=== PATIENT | female | born 1990 | race Caucasian/White ===

== ENCOUNTER 2019-03-20 20:58 | Emergency (ER) | payer BC, SELFPAY ==
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
[2019-03-21 01:24] VITALS: TEMP 98.4
[2019-03-21 01:27] VITALS: BP 129/89; O2SAT 99
--- NOTE | 2019-03-21 09:37 | RAD REPORT ---
EXAM DESCRIPTION: RAD - Knee Left 3 View - 03/20/2019 10:31 pm CLINICAL HISTORY: PAIN Trauma, pain COMPARISON: No comparisons FINDINGS: No fracture or dislocation seen.
--- NOTE | 2019-03-21 09:38 | RAD REPORT ---
EXAM DESCRIPTION: RAD - Wrist Left 3 View - 03/20/2019 10:31 pm CLINICAL HISTORY: PAIN Pain COMPARISON: No comparisons FINDINGS: Thin lucency is seen in the region of the radial styloid on the oblique view suspicious fo r nondisplaced fracture. Advise correlation with clinical point tenderness in this region. Elsewher e no fracture is identified.
== END 2019-03-20 23:09 | disposition home or self-care (01) ==
LOC: ER 20:58
DX: S60.212A Contusion of left wrist, initial encounter (principal); S80.02XA Contusion of left knee, initial encounter; V43.52XA Car driver injured in collision with other type car in traffic accident, initial encounter; Y93.89 Activity, other specified; Y92.410 Unspecified street and highway as the place of occurrence of the external cause; F41.9 Anxiety disorder, unspecified; Z72.0 Tobacco use; Z88.1 Allergy status to other antibiotic agents; Z88.3 Allergy status to other anti-infective agents
CPT/HCPCS: 99284

== ENCOUNTER 2021-06-18 23:40 | Emergency (ER) | payer OTHER ==
--- OUTSIDE RECORDS SUMMARY | 2021-06-19 01:18 | XMS REPORT | Continuity of Care Document ---
:1990 Author Organization [facility] t Address [address] [place] [address] [place] [id number] Care Team Providers Name Role Phone [email or web address]_McCloud_C Attending Clinician Unavailable GC_[facility]_McCloud Attending Clinician Unavailable Manuel Attending Clinician [phone] [email or web address]_McCloud_C Admitting Clinician Unavailable GC_[facility]_McCloud Admitting Clinician Unavailable Payers Payer Name Policy Type Policy Number Effective Date Expiration Date [facility] [id number] Problems This patient has no known problems. Allergies, Adverse Reactions, Alerts This patient has no known allergies or adverse reactions. Medications This patient has no known medications. Procedures This patient has no known procedures. Encounters Start End Encounter Admission Attending Care Care Encounter Source Date/Time Date/Time Type Type Clinicians Facility Department ID 2021-05-30 2021-05-30 Outpatient [facility]_ PRIV PRIV [id number] [facility] 03:46:00 03:46:00 McCloud_C [id number] [facility] 2021-05-25 2021-05-25 Outpatient GC_[facility]_ PRIV PRIV [id number] [facility] 11:32:00 11:32:00 McCloud_C [id number] [facility] 2021-05-22 2021-05-22 Outpatient GC_[facility]_ PRIV PRIV [id number] [facility] 11:40:00 11:40:00 McCloud_C [id number] [facility] 2021-05-21 2021-05-21 Outpatient GC_[facility] PRIV PRIV [id number] [facility] 04:28:00 04:28:00 _McCloud [id number] [facility] 2021-05-18 2021-05-18 Outpatient GC_[facility] PRIV PRIV [id number] [facility] 09:58:00 09:58:00 _McCloud [id number] [facility] 2021-05-08 2021-05-08 Outpatient GC_[facility]_ PRIV PRIV [id number] [facility] 03:16:00 03:16:00 McChugoud_C [id number] [facility]i no[facility] 2021-05-07 2021-05-07 Outpatient GC_[facility] PRIV PRIV [id number] [facility] 11:23:00 11:23:00 _McCloud [id number] Medic al 2021-05-07 2021-05-07 Outpatient Manuel, PRIV PRIV [id number] 00:00:00 00:00:00 Alec [id number] 2021-05-02 2021-05-02 Outpatient PRIV PRIV [id number] [facility] 05:27:00 05:27:00 [id number] Medica l Results This patient has no known results.
[2021-06-19 01:26] LABS: Absolute Lymphocytes (CBC) 1.4 K/uL (0.7-4.9); Hematocrit 42.1 % (36.0-45.0); Lymphocytes % 23.3 % (15.3-44.8); MPV 8.1 fL (7.6-11.3); RBC Red Blood Cell Count 5.27 M/uL (3.86-4.86)
[2021-06-19 01:40] LABS: ALT/SGPT 33 U/L (12-78); AST/SGOT 26 U/L (15-37); Albumin 4.2 g/dL (3.4-5.0); Alkaline Phosphatase 47 U/L (45-117); BUN Blood Urea Nitrogen 5 mg/dL (7-18); Bicarbonate 23 mmol/L (21-32); Bilirubin Total 0.5 mg/dL (0.2-1.0); Glucose Level 75 mg/dL (74-106); Lipase 112 U/L (73-393); Potassium 3.3 mmol/L (3.5-5.1); Protein, Total 7.9 g/dL (6.4-8.2); Sodium Level 136 mmol/L (136-145)
[2021-06-19] MEDS ORDERED: FAMOTIDINE 20 MG/2 ML VIAL IV ONE (01:48)
[2021-06-19] MEDS ORDERED: NA CHLORIDE 0.9% 1,000 ML ONE ×2 (01:48→03:03)
--- NOTE | 2021-06-19 04:01 | ER ---
Nurse's Notes [facility] Name: Marianna Membreno Age: 30 yrs Sex: Female : 1990 Arrival Date: 06/18/2021 Time: 23:44 Bed 12 Private MD: Diagnosis: Abdominal tenderness;Vomiting;Calculus of gallbladder without cholecystitis without obstruction;Other cholelithiasis without obstruction;Hypokalemia Presentation: 06/19 00:45 Chief complaint: Patient states: Abdominal pain x 4-5 days with vomiting, diarrhea lp1 began today; Seen at clinic today and prescribed Nexium and order to give stool sample. 00:45 Coronavirus screen: At this time, the client does not indicate any symptoms associated lp1 with coronavirus-19. Ebola Screen: No symptoms or risks identified at this time. Initial Sepsis Screen: Does the patient meet any 2 criteria? No. Patient's initial sepsis screen is negative. Does the patient have a suspected source of infection? No. Patient's initial sepsis screen is negative. Risk Assessment: Do you want to hurt yourself or someone else? Patient reports no desire to harm self or others. Onset of symptoms was June 19, 2021. 00:45 Method Of Arrival: Ambulatory lp1 00:47 Acuity: LINDA 3 lp1 PHOTOENGRAVER: 01:04 LMP N/A - Irregular menses lp1 Historical: - Allergies: 01:03 Augmentin; lp1 01:03 Erythromycin; lp1 - Home Meds: 01:03 Singulair Oral [Active]; Provera oral [Active]; Buspirone Oral [Active]; lp1 - PMHx: 01:03 Anxiety; lp1 - PSHx: 01:03 tubal ligation; lp1 - Immunization history:: Adult Immunizations up to date. - Social history:: Smoking status: Reported history of juuling and/or vaping. - Family history:: not pertinent. Screenin:04 Abuse screen: Denies threats or abuse. Denies injuries from another. Nutritional lp1 screening: No deficits noted. Tuberculosis screening: No symptoms or risk factors identified. Fall Risk None identified. Assessment: 01:15 General: Appears in no apparent distress. Behavior is appropriate for age. Pain: lp1 Complains of pain in epigastric area Pain currently is 7 out of 10 on a pain scale. Neuro: Level of Consciousness is awake, alert, obeys commands. Cardiovascular: Patient's skin is warm and dry. Respiratory: Respiratory effort is even, unlabored. GI: Abdomen is non-distended, Bowel sounds present X 4 quads. Abdomen is tender to palpation in epigastric area. : No signs and/or symptoms were reported regarding the genitourinary system. EENT: No signs and/or symptoms were reported regarding the EENT system. Derm: Skin is pink, warm \T\ dry. Musculoskeletal: No deficits noted. 04:12 Reassessment: Patient and/or family updated on plan of care and expected duration. Pain sm5 level reassessed. Patient is alert, oriented x 3, equal unlabored respirations, skin warm/dry/pink. Vital Signs: 00:45 BP 119 / 97; Pulse 109; Resp 16; Temp 98.6(O); Pulse Ox 100% on R/A; Weight 73.94 kg lp1 (R); Height 5 ft. 6 in. (167.64 cm); Pain 7/10; 04:11 BP 122 / 85; Pulse 88; Resp 16; Pulse Ox 100% on R/A; sm5 00:45 Body Mass Index 26.31 (73.94 kg, 167.64 cm) lp1 ED Course: 06/18 23:44 Patient arrived in ED. es 03/ 00:33 León Malin MD is Attending Physician. kate 00:47 Triage completed. lp1 01:04 Arm band placed on. lp1 01:04 Patient has correct armband on for positive identification. lp1 01:05 Anastacia Park, JUMA is Primary Nurse. lp1 01:09 Inserted saline lock: 20 gauge in right antecubital area, using aseptic technique. sm5 Blood collected. 01:11 CBC with Diff Sent. sm5 01:11 CMP Sent. sm5 01:11 Lipase Sent. sm5 01:33 Abdomen Limited US In Process Unspecified. EDMS 02:39 CT Abd/Pelvis - IV Contrast Only In Process Unspecified. EDMS 04:01 Nicolas Holloway MD is Referral Physician. kate 04:01 Samm Givens MD is Referral Physician. kate 04:12 No provider procedures requiring assistance completed. IV discontinued, intact, sm5 bleeding controlled, No redness/swelling at site. Pressure dressing applied. Administered Medications: 01:59 Drug: NS 0.9% 1000 ml Route: IV; Rate: 1 bolus; Site: right antecubital; lp1 03:56 Follow up: IV Status: Completed infusion; IV Intake: 1000ml lp1 01:59 Drug: Pepcid (famotidine) 20 mg Route: IVP; Site: right antecubital; lp1 03:56 Follow up: Response: No adverse reaction lp1 03:56 Drug: NS 0.9% 1000 ml Route: IV; Rate: 1 bolus; Site: right antecubital; lp1 04:11 Drug: Potassium Effervescent Tablet 25 mEq Route: PO; sm5 Intake: 03:56 IV: 1000ml; Total: 1000ml. lp1 Outcome: 04:01 Discharge ordered by . kate 04:12 Discharged to home ambulatory, with friend. hemant 04:12 Condition: stable 04:12 Discharge instructions given to patient, friend, Instructed on discharge instructions, follow up and referral plans. medication usage, Demonstrated understanding of instructions, follow-up care, medications, Prescriptions given X 3. 04:12 Patient left the ED. 5 Signatures: Dispatcher [employer] León Oliveros MD MD cha Salyer, Edna es Pena, Laura RN RN 1 Delia Olivo RN RN 5
--- NOTE | 2021-06-19 04:01 | EDPHYS ---
Physician Documentation [facility] Name: Marianna Membreno Age: 30 yrs Sex: Female : 1990 Arrival Date: 06/18/2021 Time: 23:44 Bed 12 Private MD: JAYLEEN Physician León Malin HPI: 06/19 01:09 This 30 yrs old Female presents to ER via Ambulatory with complaints of kate Abdominal Pain. 01:09 The patient presents with abdominal pain in the upper abdomen. Onset: The kate symptoms/episode began/occurred yesterday. The patient presents to the emergency department with nausea, vomiting, diarrhea, abdominal pain, of the epigastric area, described as achy, and does not radiate. Onset: The symptoms/episode began/occurred yesterday. Possible causes: unknown. The symptoms are aggravated by nothing. The symptoms are alleviated by nothing. The symptoms do not radiate. Associated signs and symptoms: Pertinent positives: nausea, vomiting. Modifying factors: The symptoms are alleviated by nothing, the symptoms are aggravated by nothing. 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 - Social history:: Smoking status: Reported history of juuling and/or vaping. - Family history:: not pertinent. ROS: 01:09 Constitutional: Negative for fever, chills, and weight loss, Eyes: Negative for injury, kaet pain, redness, and discharge, ENT: Negative for injury, pain, and discharge, Neck: Negative for injury, pain, and swelling, Cardiovascular: Negative for chest pain, palpitations, and edema, Respiratory: Negative for shortness of breath, cough, wheezing, and pleuritic chest pain, Back: Negative for injury and pain, : Negative for injury, bleeding, discharge, and swelling, MS/Extremity: Negative for injury and deformity, Skin: Negative for injury, rash, and discoloration, Neuro: Negative for headache, weakness, numbness, tingling, and seizure, Psych: Negative for depression, anxiety, suicide ideation, homicidal ideation, and hallucinations, Allergy/Immunology: Negative for hives, rash, and allergies, Endocrine: Negative for neck swelling, polydipsia, polyuria, polyphagia, and marked weight changes, Hematologic/Lymphatic: Negative for swollen nodes, abnormal bleeding, and unusual bruising. :09 Abdomen/GI: Positive for abdominal pain, nausea and vomiting, diarrhea, of the epigastric area. Exam: : Constitutional: This is a well developed, well nourished patient who is awake, alert, kate and in no acute distress. Head/Face: Normocephalic, atraumatic. Eyes: Pupils equal round and reactive to light, extra-ocular motions intact. Lids and lashes normal. Conjunctiva and sclera are non-icteric and not injected. Cornea within normal limits. Periorbital areas with no swelling, redness, or edema. ENT: Nares patent. No nasal discharge, no septal abnormalities noted. Tympanic membranes are normal and external auditory canals are clear. Oropharynx with no redness, swelling, or masses, exudates, or evidence of obstruction, uvula midline. Mucous membranes moist. Neck: Trachea midline, no thyromegaly or masses palpated, and no cervical lymphadenopathy. Supple, full range of motion without nuchal rigidity, or vertebral point tenderness. No Meningismus. Chest/axilla: Normal chest wall appearance and motion. Nontender with no deformity. No lesions are appreciated. Cardiovascular: Regular rate and rhythm with a normal S1 and S2. No gallops, murmurs, or rubs. Normal PMI, no JVD. No pulse deficits. Respiratory: Lungs have equal breath sounds bilaterally, clear to auscultation and percussion. No rales, rhonchi or wheezes noted. No increased work of breathing, no retractions or nasal flaring. Back: No spinal tenderness. No costovertebral tenderness. Full range of motion. Skin: Warm, dry with normal turgor. Normal color with no rashes, no lesions, and no evidence of cellulitis. MS/ Extremity: Pulses equal, no cyanosis. Neurovascular intact. Full, normal range of motion. Neuro: Awake and alert, GCS 15, oriented to person, place, time, and situation. Cranial nerves II-XII grossly intact. Motor strength 5/5 in all extremities. Sensory grossly intact. Cerebellar exam normal. Normal gait. Psych: Awake, alert, with orientation to person, place and time. Behavior, mood, and affect are within normal limits. 01:09 Abdomen/GI: Inspection: abdomen appears normal, Bowel sounds: normal, Palpation: mild abdominal tenderness, in the epigastric area, Liver: no appreciated palpable abnormalities, Hernia: not appreciated. 01:09 Musculoskeletal/extremity: DVT Exam: No signs of deep vein thrombosis. no pain, no swelling, no tenderness, negative Homans' sign noted on exam, no appreciated bluish discoloration, no erythema, no increased warmth. Vital Signs: 00:45 BP 119 / 97; Pulse 109; Resp 16; Temp 98.6(O); Pulse Ox 100% on R/A; Weight 73.94 kg lp1 (R); Height 5 ft. 6 in. (167.64 cm); Pain 7/10; 04:11 BP 122 / 85; Pulse 88; Resp 16; Pulse Ox 100% on R/A; sm5 00:45 Body Mass Index 26.31 (73.94 kg, 167.64 cm) lp1 MDM: 00:33 Patient medically screened. kate 01:12 Differential diagnosis: Nonspecific abd pain, pancreatitis, appendicitis, kate diverticulitis, viral gastroenteritis, gastroenteritis, bowel obstruction, cholecystitis, Cholelithiasis, gastritis, non-specific abd pain, pancreatitis, urinary tract infection. Data reviewed: vital signs, nurses notes, lab test result(s), radiologic studies, CT scan, ultrasound. Data interpreted: trauma coordinator: rate is 109 beats/min, rhythm is regular, Pulse oximetry: on room air is 100 %. Test interpretation: by ED physician or midlevel provider:. Counseling: I had a detailed discussion with the patient and/or guardian regarding: the historical points, exam findings, and any diagnostic results supporting the discharge/admit diagnosis, lab results, radiology results, the need for outpatient follow up, for definitive care, a family practitioner, a general surgeon, a home economics extension worker. 06/19 00:59 Order name: CBC with Diff; Complete Time: : kate 06/19 00:59 Order name: CMP; Complete Time: kate 06/19 00:59 Order name: Lipase; Complete Time: [facility] 06/19 00:59 Order name: Abdomen Limited US [facility] 06/19 00:59 Order name: CT Abd/Pelvis - IV Contrast Only [facility] 06/19 00:59 Order name: IV Saline Lock; Complete Time: 01:11 kate 06/19 00:59 Order name: Labs collected and sent; Complete Time: 01:11 kate Administered Medications: 01:59 Drug: NS 0.9% 1000 ml Route: IV; Rate: 1 bolus; Site: right antecubital; lp1 03:56 Follow up: IV Status: Completed infusion; IV Intake: 1000ml lp1 01:59 Drug: Pepcid (famotidine) 20 mg Route: IVP; Site: right antecubital; lp1 03:56 Follow up: Response: No adverse reaction lp1 03:56 Drug: NS 0.9% 1000 ml Route: IV; Rate: 1 bolus; Site: right antecubital; lp1 04:11 Drug: Potassium Effervescent Tablet 25 mEq Route: PO; sm5 Disposition Summary: 06/19/21 04:01 Discharge Ordered Location: Home kaet Problem: new kate Symptoms: have improved kate Condition: Stable kate Diagnosis - Abdominal tenderness kate - Vomiting kate - Calculus of gallbladder without cholecystitis without obstruction kate - Other cholelithiasis without obstruction kate - Hypokalemia kate Followup: kate - With: Private Physician - When: 2 - 3 days - Reason: Recheck today's complaints, Continuance of care, Re-evaluation by your physician Followup: kate - With: - When: 2 - 3 days - Reason: Recheck today's complaints, Re-evaluation by your physician Followup: kate - With: - When: 2 - 3 days - Reason: Recheck today's complaints, Re-evaluation by your physician Discharge Instructions: - Discharge Summary Sheet kate - Abdominal Pain, Adult kate - Abdominal Pain, Adult, [id number] kate - Cholelithiasis kate - Cholelithiasis, [id number] kate - Potassium Content of Foods kate - Vomiting, Adult kate - Hypokalemia kate Forms: - Medication Reconciliation Form kate - Thank You Letter kate - Antibiotic Education kate - Prescription Opioid Use kate Prescriptions: - Protonix 40 mg Oral Tablet - take 1 tablet by ORAL route once daily; 30 tablet; Refills: 0, Product kate Selection Permitted - Zofran 4 mg Oral Tablet - take 1 tablet by ORAL route every 12 hours As needed; 20 tablet; Refills: 0, kate Product Selection Permitted - dicyclomine 20 mg Oral Tablet - take 1 tablet by ORAL route 4 times per day; 28 tablet; Refills: 0, Product kate Selection Permitted Signatures: Dispatcher [employer] León Oliveros MD MD cha Pena, Laura, RN RN lp1 Delia Olivo RN RN sm5
[2021-06-19] MEDS ORDERED: POTASSIUM 25 MEQ EFFERV TAB ONE (04:08)
[2021-06-19 04:29] VITALS: TEMP 98.6; O2SAT 100
[2021-06-19 04:32] VITALS: BP 122/85
--- NOTE | 2021-06-19 12:52 | RAD REPORT ---
EXAM DESCRIPTION: US - Abdomen Exam Limited - 06/19/2021 2:06 am CLINICAL HISTORY: ABD PAIN TECHNIQUE: Real-time ultrasound of the right upper quadrant with image documentation. COMPARISON: No relevant prior studies available. FINDINGS: Gallbladder: Gallstones and sludge within the gallbladder. The gallbladder wall is top n ormal in thickness. No pericholecystic fluid. Common bile duct: Unremarkable as visualized. No stones. No dilation. IMPRESSION: Cholelithiasis and sludge. Top normal gallbladder wall thickness. No pericholecystic flu id. Electronically signed by: Lucila Martin MD 06/19/2021 1:59 AM CDT Due to temporary technical issues with the PACS/Fluency reporting system, reports are being signed by the in house radiologists without review as a courtesy to insure prompt reporting. The interpreting radiologist is fully responsible for the content of the report.
--- NOTE | 2021-06-19 17:25 | RAD REPORT ---
EXAM DESCRIPTION: CT - Abdomen Pelvis W Contrast - 06/19/2021 5:12 am CLINICAL HISTORY: The patient is 30 years old and is Female; ABD PAIN TECHNIQUE: Axial computed tomography images of the abdomen and pelvis with intravenous contrast. S agittal and coronal reformatted images were created and reviewed. This CT exam was performed using one or more of the following dose reduction techniques: automated exposure control, adjustment of t he mA and/or kV according to patient size, and/or use of iterative reconstruction technique. COMPARISON: No relevant prior studies available. FINDINGS: Lung bases: Unremarkable. No mass. No consolidation. ABDOMEN: Liver: Unremarkable. No mass. Gallbladder and bile ducts: Unremarkable. No calcified stones. No ductal dilation. Pancreas: Unremarkable. No mass. No ductal dilation. Spleen: Round nonspecific 8 mm hypoattenuating lesion in the posterior spleen. Adrenals: Unremarkable. No mass. Kidneys and ureters: Multiple simple cysts and tiny low density lesions too small to fully charac terize in the kidneys bilaterally. ACR White Paper guidelines (Hercarlos, et al. JACR 2018; 15(2):264-273 ) suggest no follow-up is necessary. Stomach and bowel: Unremarkable. No obstruction. No mucosal thickening. PELVIS: Appendix: No findings to suggest acute appendicitis. Bladder: Unremarkable. No mass. Reproductive: Unremarkable as visualized. ABDOMEN and PELVIS: Intraperitoneal space: Unremarkable. No free air. No significant fluid collection. Bones/joints: No acute fracture. No dislocation. Soft tissues: Unremarkable. Vasculature: Unremarkable. No abdominal aortic aneurysm. Lymph nodes: Unremarkable. No enlarged lymph nodes. IMPRESSION: No acute findings in the abdomen or pelvis. Electronically signed by: Bird Padilla MD 06/19/2021 3:40 AM CDT Due to temporary technical issues with the PACS/Fluency reporting system, reports are being signed by the in house radiologists without review as a courtesy to insure prompt reporting. The interpreting radiologist is fully responsible for the content of the report.
== END 2021-06-19 04:12 | disposition home or self-care (01) ==
LOC: ER 23:40
DX: K80.20 Calculus of gallbladder without cholecystitis without obstruction (principal); K80.80 Other cholelithiasis without obstruction; E87.6 Hypokalemia; R11.10 Vomiting, unspecified; F41.9 Anxiety disorder, unspecified; Z88.1 Allergy status to other antibiotic agents; Z88.3 Allergy status to other anti-infective agents
CPT/HCPCS: 85025; 36415; 83690; 80053; 74177; 76705; Q9967; J7030 ×2; 96361; 96374; 99284

== ENCOUNTER 2021-06-23 21:13 | Emergency (ER) | payer OTHER ==
--- OUTSIDE RECORDS SUMMARY | 2021-06-23 21:16 | XMS REPORT | Continuity of Care Document ---
:1990 Author Organization [facility] t Address [address] [place] [address] [place] [address] Care Team Providers Name Role Phone [email or web address]_McCloud_C Attending Clinician Unavailable GC_[facility]_McCloud Attending Clinician Unavailable Manuel Attending Clinician [phone] [email or web address]_McCloud_C Admitting Clinician Unavailable GC_SWHAT[facility]_McCloud Admitting Clinician Unavailable Payers Payer Name Policy Type Policy Number Effective Date Expiration Date [facility] [id number] Problems This patient has no known problems. Allergies, Adverse Reactions, Alerts This patient has no known allergies or adverse reactions. Medications This patient has no known medications. Procedures This patient has no known procedures. Encounters Start End Encounter Admission Attending Care Care Encounter Source Date/Time Date/Time Type Type Clinicians Facility Department ID 2021-05-30 2021-05-30 Outpatient GC_[facility]_ PRIV PRIV [id number] [facility] 03:46:00 03:46:00 McCloud_C [id number] [facility] 2021-05-25 2021-05-25 Outpatient GC_[facility]_ PRIV PRIV [id number] [facility] 11:32:00 11:32:00 McCloud_C [id number] [facility] 2021-05-22 2021-05-22 Outpatient GC_[facility]_ PRIV PRIV [id number] [facility] 11:40:00 11:40:00 McCloud_C [id number] [facility] 2021-05-21 2021-05-21 Outpatient GC_SWHATBIC PRIV PRIV [id number] [facility] 04:28:00 04:28:00 _McCloud [id number] [facility] 2021-05-18 2021-05-18 Outpatient GC_SWHATBIC PRIV PRIV [id number] [facility] 09:58:00 09:58:00 _McCloud [id number] [facility] 2021-05-08 2021-05-08 Outpatient GC_[facility]_ PRIV PRIV [id number] [facility] 03:16:00 03:16:00 McChugoud_C [id number] [facility] 2021-05-07 2021-05-07 Outpatient GC_SWHATBIC PRIV PRIV [id number] [facility] 11:23:00 11:23:00 _McCloud [id number] Medic al 2021-05-07 2021-05-07 Outpatient Manuel, PRIV PRIV [id number] 00:00:00 00:00:00 Alec [id number] 2021-05-02 2021-05-02 Outpatient PRIV PRIV [id number] [facility] 05:27:00 05:27:00 [id number] Medica l Results This patient has no known results.
[2021-06-23 21:53] LABS: Absolute Lymphocytes (CBC) 1.2 K/uL (0.7-4.9); Hematocrit 43.8 % (36.0-45.0); Lymphocytes % 25.2 % (15.3-44.8); MPV 8.1 fL (7.6-11.3)
[2021-06-23] MEDS ORDERED: KETOROLAC 30 MG/ML INJ ONE (22:06)
[2021-06-23] MEDS ORDERED: FAMOTIDINE 20 MG/2 ML VIAL IV ONE (22:06)
[2021-06-23] MEDS ORDERED: NA CHLORIDE 0.9% 1,000 ML ONE (22:06)
[2021-06-23] MEDS ORDERED: ONDANSETRON 4 MG/2 ML VIAL ONE (22:06)
--- NOTE | 2021-06-23 22:07 | RAD REPORT ---
EXAM DESCRIPTION: US - Abdomen Exam Limited - 06/23/2021 9:55 pm CLINICAL HISTORY: ABD PAIN COMPARISON: Abdomen Pelvis W Contrast dated 06/19/2021; Abdomen Exam Limited dated 06/19/2021 FINDINGS: The gallbladder demonstrates sludge but no calcified stones. The gallbladder wall is mildl y thickened, similar to prior. The common bile duct is normal measuring 3 mm. The liver demonstrates no findings of intrahepatic biliary dilatation. IMPRESSION: Sludge and mild gallbladder wall thickening, both of which are nonspecific findings and could be secondary to underlying liver disease rather than acute calculus cholecystitis. Note that sm all gallstones were identified on the ultrasound from 06/19/2021 but not today. Suspicion for acute c holecystitis is low. If there is persistent clinical concern, could consider HIDA scan to confirm cys tic duct patency.
[2021-06-23 22:09] LABS: Albumin 4.2 g/dL (3.4-5.0); Bilirubin Total 0.5 mg/dL (0.2-1.0); Potassium 3.1 mmol/L (3.5-5.1); Protein, Total 7.1 g/dL (6.4-8.2)
--- NOTE | 2021-06-23 22:40 | ER ---
Nurse's Notes [facility] Name: Marianna Membreno Age: 30 yrs Sex: Female : 1990 Arrival Date: 06/23/2021 Time: 21:16 Bed 20 Private MD: Diagnosis: Other cholelithiasis without obstruction Presentation: 06/23 21:29 Chief complaint: Patient states: "I was here Friday, I'm supposed to have gallbladder ab2 surgery Friday. I called Dr. Givens and they told me to come in." Pt c/o nausea. Pt denies v/d. Pt c/o LUQ pain. Coronavirus screen: Vaccine status: Patient reports being unvaccinated. Client denies travel out of the [place] in the last 14 days. At this time, the client does not indicate any symptoms associated with coronavirus-19. Ebola Screen: Patient negative for fever greater than or equal to 101.5 degrees Fahrenheit, and additional compatible Ebola Virus Disease symptoms Patient denies exposure to infectious person. Patient denies travel to an Ebola-affected area in the 21 days before illness onset. No symptoms or risks identified at this time. Initial Sepsis Screen: Does the patient meet any 2 criteria? No. Patient's initial sepsis screen is negative. Does the patient have a suspected source of infection? No. Patient's initial sepsis screen is negative. Risk Assessment: Do you want to hurt yourself or someone else? Patient reports no desire to harm self or others. Onset of symptoms is unknown. 21:29 Method Of Arrival: Ambulatory ab2 21:29 Acuity: LINDA 3 ab2 Triage Assessment: 21:33 General: Appears in no apparent distress. uncomfortable, Behavior is calm, cooperative, ab2 appropriate for age. Pain: Complains of pain in left upper quadrant Pain currently is 9 out of 10 on a pain scale. Neuro: Level of Consciousness is awake, alert, obeys commands, Oriented to person, place, time, situation, Appropriate for age Band Leader are equal bilaterally. GI: Reports upper abdominal pain, nausea. 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 - Social history:: Smoking status: Reported history of juuling and/or vaping. Screenin:46 Abuse screen: Denies threats or abuse. Denies injuries from another. Nutritional sm5 screening: Has had N/V for 3 or more days. Tuberculosis screening: No symptoms or risk factors identified. Fall Risk None identified. Assessment: 22:00 General: Appears in no apparent distress. Behavior is cooperative. Pain: Complains of sm5 pain in abdomen and left upper quadrant. Neuro: No deficits noted. Level of Consciousness is awake, alert, obeys commands, Oriented to person, place, time, situation. Cardiovascular: No deficits noted. Cardiovascular: Capillary refill < 3 seconds Patient's skin is warm and dry. Respiratory: No deficits noted. Airway is patent Trachea midline Respiratory effort is even, unlabored. GI: Reports upper abdominal pain, nausea, vomiting. Vital Signs: 21:29 BP 122 / 94; Pulse 109; Resp 17; Temp 97.8(TE); Pulse Ox 97% on R/A; Weight 73.94 kg; ab2 Height 5 ft. 6 in. (167.64 cm); Pain 9/10; 22:46 BP 119 / 87; Pulse 87; Resp 19; Pulse Ox 98% on R/A; sm5 21:29 Body Mass Index 26.31 (73.94 kg, 167.64 cm) ab2 ED Course: 21:16 Patient arrived in ED. kc5 21:32 Triage completed. ab2 21:32 Jessie Vines FNP-C [facility]. kb 21:32 Adrian Llamas MD is Attending Physician. kb 21:33 Arm band placed on right wrist. ab2 21:38 Delia Olivo RN is Primary Nurse. sm5 21:42 Inserted saline lock: 20 gauge in right antecubital area, using aseptic technique. sm5 Blood collected. 21:57 Abdomen Limited US In Process Unspecified. EDMS 22:46 No provider procedures requiring assistance completed. sm5 22:47 Patient has correct armband on for positive identification. Bed in low position. Call sm5 light in reach. Side rails up X2. 22:49 IV discontinued, intact, bleeding controlled, No redness/swelling at site. Pressure 5 dressing applied. Administered Medications: 22:12 Drug: NS 0.9% 1000 ml Route: IV; Rate: 1 bolus; Site: right antecubital; sm5 22:12 Drug: Pepcid (famotidine) 20 mg Route: IVP; Site: right antecubital; sm5 22:12 Drug: Zofran (Ondansetron) 4 mg Route: IVP; Site: right antecubital; sm5 22:12 Drug: Ketorolac 15 mg Route: IVP; Site: right antecubital; 5 Outcome: 22:39 Discharge ordered by . cheryl 22:49 Discharged to home ambulatory. [facility] 22:49 Condition: stable 22:49 Discharge instructions given to patient, Instructed on discharge instructions, follow up and referral plans. medication usage, Demonstrated understanding of instructions, follow-up care, medications, Prescriptions given X 1. 22:49 Patient left the ED. [facility] Signatures: Dispatcher [employer] EDMS Jessie Vines, TREATMENT SUPERVISOR-C TREATMENT SUPERVISOR-Martha Perrin kc5 Delia Olivo, RN RN 5 Agapito Bruner2
--- NOTE | 2021-06-23 22:40 | EDPHYS ---
Physician Documentation [facility] Name: Marianna Membreno Age: 30 yrs Sex: Female : 1990 Arrival Date: 06/23/2021 Time: 21:16 Bed 20 Private MD: ED Physician Adrian Llamas HPI: 06/23 22:37 This 30 yrs old Female presents to ER via Ambulatory with complaints of GALLBLADDER kb PAIN. 22:37 The patient presents with abdominal pain in the right upper quadrant. Onset: The kb symptoms/episode began/occurred 2 week(s) ago, and became worse today. The symptoms do not radiate. Associated signs and symptoms: Pertinent positives: nausea and vomiting, Pertinent negatives: fever. The symptoms are described as constant. Modifying factors: The symptoms are alleviated by nothing, the symptoms are aggravated by nothing. Severity of pain: At its worst the pain was moderate in the emergency department the pain is unchanged. The patient has not experienced similar symptoms in the past. The patient has been recently seen by a physician:. Pt reports RUQ pain for 2 weeks. STates she was seen here on Friday and told it was her gallbladder, followed up with Dr Givens yesterday and is scheduled for [facility] on Friday. States the pain was worse today and she has been unable to tolerate anything by mouth. 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 - Social history:: Smoking status: Reported history of juuling and/or vaping. ROS: 22:37 Constitutional: Negative for fever, chills, and weight loss. kb 22:37 Abdomen/GI: Positive for abdominal pain, nausea and vomiting, Negative for diarrhea. 22:37 All other systems are negative. Exam: 22:37 Constitutional: This is a well developed, well nourished patient who is awake, alert, kb and in no acute distress. Head/Face: Normocephalic, atraumatic. ENT: Moist Mucous membranes Cardiovascular: Regular rate and rhythm with a normal S1 and S2. No gallops, murmurs, or rubs. No pulse deficits. Respiratory: Respirations even and unlabored. No increased work of breathing. Talking in full sentences Abdomen/GI: Soft, non-tender. No distention Skin: Warm, dry with normal turgor. Normal color. MS/ Extremity: Pulses equal, no cyanosis. Neurovascular intact. Full, normal range of motion. Neuro: Awake and alert, GCS 15, oriented to person, place, time, and situation. Moves all extremities. Normal gait. Psych: Awake, alert, with orientation to person, place and time. Behavior, mood, and affect are within normal limits. Vital Signs: 21:29 BP 122 / 94; Pulse 109; Resp 17; Temp 97.8(TE); Pulse Ox 97% on R/A; Weight 73.94 kg; ab2 Height 5 ft. 6 in. (167.64 cm); Pain 9/10; 22:46 BP 119 / 87; Pulse 87; Resp 19; Pulse Ox 98% on R/A; sm5 21:29 Body Mass Index 26.31 (73.94 kg, 167.64 cm) ab2 MDM: 21:35 Patient medically screened. kb 22:22 Data reviewed: vital signs, nurses notes. Data interpreted: Pulse oximetry: on room air kb is 97 %. Interpretation: normal. Physician consultation: Samm Givens MD was contacted at 22:22, regarding consult, patient's condition, will admit pt, keep NPO and do cholecystectomy on Friday. Discussed with pt. She wanted some time to think about it. . 22:36 Counseling: I had a detailed discussion with the patient and/or guardian regarding: the kb historical points, exam findings, and any diagnostic results supporting the discharge/admit diagnosis, lab results, radiology results. ED course: Pt has decided that she would like to go home tonight and will continue with plan to have elective surgery on Friday. Dr Givens notified. 22:37 ED course: Nontoxic in appearance, no tenderness upon exam. kb 06/23 21:34 Order name: CBC with Diff; Complete Time: 22:01 kb 06/23 21:34 Order name: CMP; Complete Time: 22:12 kb 06/23 21:34 Order name: Lipase; Complete Time: 22:12 kb 06/23 21:34 Order name: Abdomen Limited US; Complete Time: 22:09 kb 06/23 21:34 Order name: IV Saline Lock; Complete Time: 21:45 kb 06/23 21:34 Order name: Labs collected and sent; Complete Time: 21:59 kb Administered Medications: 22:12 Drug: NS 0.9% 1000 ml Route: IV; Rate: 1 bolus; Site: right antecubital; sm5 22:12 Drug: Pepcid (famotidine) 20 mg Route: IVP; Site: right antecubital; sm5 22:12 Drug: Zofran (Ondansetron) 4 mg Route: IVP; Site: right antecubital; sm5 22:12 Drug: Ketorolac 15 mg Route: IVP; Site: right antecubital; sm5 Disposition: 06/24 01:16 Co-signature as Attending Physician, Adrian Llamas MD. [email or web address] Disposition Summary: 06/23/21 22:39 Discharge Ordered Location: Home kb Condition: Stable kb Diagnosis - Other cholelithiasis without obstruction kb Followup: kb - With: Emergency Department - When: As needed - Reason: Worsening of condition Followup: kb - With: Private Physician - When: 2 - 3 days - Reason: Recheck today's complaints, Continuance of care, Re-evaluation by your physician Discharge Instructions: - Discharge Summary Sheet kb - Cholelithiasis, [id number] kb Forms: - Medication Reconciliation Form kb - Thank You Letter kb - Antibiotic Education kb - Prescription Opioid Use kb Prescriptions: - dicyclomine 20 mg Oral Tablet - take 1 tablet by ORAL route 4 times per day As needed; 20 tablet; Refills: 0, kb Product Selection Permitted Signatures: Dispatcher [employer] Jessie Ashton, MAYUR ARAUZ-Adrian Wisdom MD MD 7 Delia Olivo RN RN 5 Agapito Bruner
[2021-06-23 23:14] VITALS: TEMP 97.8
[2021-06-23 23:15] VITALS: BP 119/87; O2SAT 98
== END 2021-06-23 22:49 | disposition home or self-care (01) ==
LOC: ER 21:13
DX: K80.80 Other cholelithiasis without obstruction (principal); F41.9 Anxiety disorder, unspecified; Z88.1 Allergy status to other antibiotic agents; Z88.3 Allergy status to other anti-infective agents
CPT/HCPCS: 85025; 36415; 83690; 80053; 76705; 96375; 96374; 99284; J7030; J2405

== ENCOUNTER → 2021-06-27 | Day surgery (SDC) | payer OTHER ==
[2021-06-26 13:02] LABS: Absolute Lymphocytes (CBC) 1.2 K/uL (0.7-4.9); Hematocrit 44.5 % (36.0-45.0); Lymphocytes % 19.9 % (15.3-44.8); MPV 8.2 fL (7.6-11.3)
[2021-06-26 13:26] LABS: Albumin 4.5 g/dL (3.4-5.0); Bilirubin Direct 0.2 mg/dL (0-0.2); Bilirubin Total 0.6 mg/dL (0.2-1.0); Potassium 3.2 mmol/L (3.5-5.1); Protein, Total 7.4 g/dL (6.4-8.2)
--- NOTE | 2021-06-26 13:53 | RAD REPORT ---
EXAM DESCRIPTION: RAD - Chest Pa And Lat (2 Views) - 06/26/2021 1:12 pm CLINICAL HISTORY: pre op Chest pain. COMPARISON: Chest Single View dated 06/10/2017 FINDINGS: The lungs are clear. The heart is normal in size. No displaced fractures. IMPRESSION: No acute or concerning finding suspected.
[~2021-06-27] MED LIST: CEFOXITIN SODIUM 1 GM/VIAL ONE; FENTANYL CITR 100 MCG/2 ML ONE; GLYCOPYRROLATE 0.2 MG/ML SYR ONE; LIDOCAINE 1% MPF 5 ML VIAL ONE; MIDAZOLAM HCL 2 MG/2 ML INJ ONE; NA CHLORIDE 0.9% 50 ML ONE; NEOSTIGMINE 1 MG/ML -5 ML ONE; ONDANSETRON 4 MG/2 ML VIAL ONE; PROMETHAZINE INJ 25 MG/ML AMP ONE; ROCURONIUM 50 MG/5 ML VIAL IV ONE; Ringers Lactate 1,000 ML IV ONE; dexAMETHasone 10 MG/ML VIAL ONE; propofoL 200 MG/20 ML VIAL IV ONE
[2021-06-27 08:29] LABS: Specific Gravity > 1.030 (1.005-1.030)
--- NOTE | 2021-06-27 10:49 | P.BOP ---
Preoperative diagnosis: acute cholecystitis, symptomatic cholelithiasis Postoperative diagnosis: same Primary procedure: Laparoscopic cholecystectomy Animal Caretaker: HARDIK KULKARNI (REVENUE CYCLE CONSULTANT) Estimated blood loss: <10cc Findings: as above Anesthesia: General Complications: None Transferred to: Recovery Room Condition: Good
[2021-06-27] MEDS: HYDROMORPHONE HCL 1 MG/ML INJ ONE ×2 (11:10→11:20)
[2021-06-27 11:57] VITALS: BP 123/80; TEMP 96.2
[2021-06-27 12:25] VITALS: O2SAT 97
--- NOTE | 2021-06-27 15:54 | OP ---
Date of Procedure: 06/27/2021 Surgeon: Smam Givens MD Lifestyle Coordinator: JOSE L Loco. Preoperative Diagnoses: Acute cholecystitis symptomatic cholelithiasis. Postoperative Diagnosis: Acute cholecystitis symptomatic cholelithiasis. Procedure: Laparoscopic cholecystectomy. Anesthesia: General plus local. Finding: Acute cholecystitis, symptomatic cholelithiasis. Indication: This is the case of a 30-year-old patient with recurrent epigastric right upper quadrant pain radiating to the back, twice in ER for acute cholecystitis, now for elective cholecystectomy. The benefits, alternatives, and risks were fully explained of laparoscopic possible open cholecystect maribeth, which include, but not limited to infection, bleeding, damage to adjacent structures, anesthesia complication, choledocholithiasis, bile leak, pancreatitis, AK, and even . She also understand s this may not relieve any symptoms. She might need more than one surgical intervention. She unders tood, signed a consent. Procedure In Detail: The patient was brought to the operating room, placed in supine position. Anes thesia was done without complication. Abdominal area was prepped and draped in the usual sterile fas hion. Marcaine 0.5% was injected for local anesthetic followed by sharp incision of the skin in the periumbilical region. The incision was carried down to fascia, which was opened under direct vision. Peritoneum was encountered, opened under direct vision. Vicryl #1 placed inside the fascia. Hasso n trocar was carefully introduced. Pneumoperitoneum was obtained. I placed 2 trocars, 1 in the fund us of the gallbladder, another 1 in the infundibulum, retracting the gallbladder in the inferolateral fashion, exposing the triangle of Calot and obtaining critical view. Cystic duct and cystic artery were clearly isolated, free circumferentially and a connection between those and the gallbladder were clearly identified. I proceeded to ligate those by using at least 3 clips proximal, 1 clip distal, ligation in middle. Same was done with the cystic artery. No bile leak. No bleeding. The gallblad giovanna was removed from liver using Bovie cauterizer and removed from abdominal cavity using an EndoCatc h through the umbilical incision. The area was inspected once again. No bile leak. No bleeding. A t that moment, I proceeded to remove the trocars under direct vision. Deflated pneumoperitoneum. Cl osed the fascia with #1 Vicryl. Irrigated subcutaneous tissue, closed that with 3-0 chromic and skin in a subcuticular fashion with 3-0 chromic and Steri-Strips on top. Sponge count and instrument cou nts correct. The patient tolerated the procedure well. The patient was sent to recovery in stable c ondition. IVONNE/NATALIO Voice ID: [id number] Report ID: [id number]
--- NOTE | 2021-06-27 15:55 | DS ---
Diagnoses: Acute cholecystitis, symptomatic cholelithiasis. Procedure: Laparoscopic cholecystectomy. Disposition: Home. Activity: As tolerated. No heavy lifting. Plan: Follow up in my office in 1 week. Call for appointment at [phone]. Keep area dry for 48 easton rs, then may shower. Keep Steri-Strip intact. Medications: The patient will be taking Bactrim DS p.o. b.i.d. and Ultracet q.4 hours p.r.n. pain. IVONNE/NATALIO Voice ID: [id number] Report ID: [id number]
== END | disposition home or self-care (01) ==
LOC: OR 08:13
PROVIDERS: ATTEND Surgery
PROC: 0FT44ZZ Resection of Gallbladder, Percutaneous Endoscopic Approach (ICD-10-PCS; principal; 2021-06-27 10:30)
DX: K80.10 Calculus of gallbladder with chronic cholecystitis without obstruction (principal); Z20.822 Contact with and (suspected) exposure to COVID-19; F41.9 Anxiety disorder, unspecified; K21.9 Gastro-esophageal reflux disease without esophagitis; E87.6 Hypokalemia
CPT/HCPCS: 85025; 80048; 36415; 82150; 84703; 81025; 80076; 88304; 83690; 71046; 47562; U0003; J2704; J2550; J2250; J3010 ×2; J1100; J1170; J2710; J7120; J0694; J2405

== ENCOUNTER 2024-12-29 18:52 | Inpatient (IN) | payer OTHER ==
[2024-12-29] MEDS ORDERED: NA CHLORIDE 0.9% 1,000 ML ONE (19:21)
[2024-12-29] MEDS ORDERED: MORPHINE 4 MG/ML SYR ONE ×2 (19:21→22:09)
[2024-12-29] MEDS ORDERED: ONDANSETRON 4 MG/2 ML VIAL ONE (19:21)
[2024-12-29 19:47] LABS: Absolute Lymphocytes (CBC) 1.5 K/uL (0.7-4.9); Hematocrit 40.3 % (36.0-45.0); Hemoglobin 13.2 g/dL (12.0-15.0); MCH 26.1 pg (27.0-35.0); MCHC 32.8 g/dL (32.0-36.0); MCV 79.7 fL (80-100); MPV 7.4 fL (7.6-11.3); Nucleated RBC Absolute Count 0.0 (0-0); Nucleated Red Blood Cells % 0.0 % (0-0); RBC Red Blood Cell Count 5.06 M/uL (3.86-4.86); White Blood Count 10.70 thou/uL (4.3-10.9)
[2024-12-29 20:15] LABS: ALT/SGPT 29.0 U/L (13-56); Albumin 3.6 g/dL (3.4-5.0); Albumin/Globulin Ratio 1.0 (1.1-1.8); Alkaline Phosphatase 91.0 U/L (45-117); Anion Gap 7.9 mEq/L (5.0-15.0); BUN Blood Urea Nitrogen 11.0 mg/dL (7-18); Globulin 3.6 g/dL (2.3-3.5); Glucose Level 97.0 mg/dL (74-106); Lipase 34.0 U/L (13-75)
[2024-12-29 20:25] LABS: AST/SGOT 23.0 U/L (15-37); Potassium 3.9 mEq/L (3.5-5.1)
--- NOTE | 2024-12-29 21:20 | RAD REPORT ---
EXAMINATION: CT Abdomen Pelvis W Contrast CLINICAL INDICATION: Female, 34 years old. ABD PAIN TECHNIQUE: CT abdomen and pelvis was performed, after the administration of IV contrast, as per depar count [facility]. Axial, sagittal and coronal reconstructions were obtained. One or more of the following dose reduction techniques were used: Automated exposure control, adjustment of the mA and k V according to patient size, and iterative reconstruction. Unless otherwise specified, incidental findings do not require dedicated imaging follow-up. COMPARISON: 06/19/2021 FINDINGS: LOWER CHEST: The visualized lung bases are clear. LIVER: Normal in size and contour. No focal lesion. BILIARY SYSTEM: Status post cholecystectomy. SPLEEN: Normal size. No focal lesion. PANCREAS: No mass, ductal dilation, or brian-pancreatic fluid. ADRENALS: Normal; no mass. KIDNEYS: Normal size and contour. No hydronephrosis. URINARY BLADDER: Unremarkable. GASTROINTESTINAL TRACT: Segmental mid to distal small bowel mild fluid distention with short segment air-fluid levels. Gradual transition towards nondistended small bowel. Mild free fluid in the pelvis. No evidence of free air, significant intra-abdominal free fluid, bowel obstruction or abscess . APPENDIX: Normal appendix. LYMPH NODES: No lymphadenopathy. MUSCULOSKELETAL: No acute or suspicious osseous abnormality. ADDITIONAL FINDINGS: None. IMPRESSION: Segmental distal small bowel mild fluid distention with gradual transition towards nondistended small bowel, suggesting of ileus, possibly in the setting of enteritis. Mild free ascites.
--- NOTE | 2024-12-29 21:50 | EDPHYS ---
Physician Documentation [facility] Name: Marianna Brannon Age: 34 yrs Sex: Female : 1990 Arrival Date: 12/29/2024 Time: 18:52 Bed 5 Private MD: ED Physician Christian Coe HPI: 12/29 20:08 This 34 yrs old Female presents to ER via Ambulatory with complaints of Abdominal Pain. kb 20:08 Patient is a 34-year-old female who presents for right sided abdominal pain that kb started 3 days ago and blood in her stool that started today. Reports nausea, denies vomiting, diarrhea, fever.. Historical: - Allergies: 19:11 Augmentin; dd2 19:11 Erythromycin; dd2 - PMHx: 19:11 Anxiety; dd2 - PSHx: 19:11 tubal ligation; dd2 - Immunization history:: Adult Immunizations up to date. - Infectious Disease History:: Denies. - Social history:: Smoking status: Reported history of juuling and/or vaping. ROS: 20:08 Constitutional: As per HPI kb Exam: 20:08 Constitutional: This is a well developed, well nourished patient who is awake, alert, kb and in no acute distress. Head/Face: Normocephalic, atraumatic. ENT: Moist Mucous membranes Cardiovascular: Regular rate Respiratory: Respirations even and unlabored. No increased work of breathing. Talking in full sentences Skin: Warm, dry with normal turgor. Normal color. MS/ Extremity: Pulses equal, no cyanosis. Neurovascular intact. Full, normal range of motion. Neuro: Awake and alert, GCS 15, oriented to person, place, time, and situation. 20:08 Abdomen/GI: Inspection: abdomen appears normal, Bowel sounds: normal, Palpation: soft, in all quadrants, moderate abdominal tenderness, in the right upper quadrant and right lower quadrant, 12/30 00:42 Abdomen/GI: Rectal exam: is unremarkable, Vital Signs: 12/29 19:07 BP 139 / 100; Pulse 102; Resp 16; Temp 97.9; Pulse Ox 100% ; Weight 83.91 kg; Height 5 dd2 ft. 6 in. ; Pain 10/10; 20:30 BP 135 / 99; Pulse 87; Resp 17; Pulse Ox 98% on R/A; mf3 21:30 BP 129 / 72; Pulse 86; Resp 18; Pulse Ox 100% on R/A; mf3 22:00 BP 121 / 80; Pulse 86; Resp 17; Pulse Ox 99% on R/A; mf3 19:07 Body Mass Index 29.86 (83.91 kg, 167.64 cm) dd2 19:07 Pain Scale: Adult dd2 Daniel Coma Score: 19:54 Eye Response: spontaneous(4). Motor Response: obeys commands(6). Verbal Response: mf3 oriented(5). Total: 15. MDM: 18:59 Medical Screening Exam initiated kb 21:46 Differential diagnosis: bowel obstruction, diverticulitis, GI Bleed, non-specific abd kb pain. Data reviewed: vital signs, nurses notes. Consideration of Admission/Observation Patient was admitted/placed on observation. Escalation of care including admission/observation considered. Management of patient was discussed with the following: Hospitalist: MARYBETH Jenkins accepts pt for admission under Dr Olson. 21:48 Historians other than the Patient: Parent: mother. Counseling: I had a detailed kb discussion with the patient and/or guardian regarding the historical points, exam findings, and any diagnostic results supporting the discharge/admit diagnosis, lab results, radiology results, the need for further work-up and treatment in the hospital. 12/30 00:42 Management of patient was discussed with the following: Liability Claims Adjuster: Dr Lee accepts kb pt for consult. 12/29 19:11 Order name: CBC with Diff; Complete Time: 20:07 kb 12/29 19:11 Order name: CMP; Complete Time: 20:26 kb 12/29 19:11 Order name: Lipase; Complete Time: 20:26 kb 12/29 21:36 Order name: CREATININE WHOLE BLOOD; Complete Time: 21:36 EDMS 12/30 00:11 Order name: CBC with Automated Diff EDMS 12/30 00:11 Order name: CBC with Automated Diff EDMS 12/30 00:11 Order name: CBC with Automated Diff EDMS 12/30 00:11 Order name: CBC with Automated Diff EDMS 12/30 00:11 Order name: Comprehensive Metabolic Panel EDMS 12/30 00:11 Order name: Comprehensive Metabolic Panel EDMS 12/30 00:11 Order name: Comprehensive Metabolic Panel EDMS 12/30 00:11 Order name: Comprehensive Metabolic Panel EDMS 12/30 00:11 Order name: Magnesium EDMS 12/30 00:11 Order name: Magnesium EDMS 12/30 00:11 Order name: Magnesium EDMS 12/30 00:11 Order name: Magnesium EDMS 12/29 19:11 Order name: CT Abd/Pelvis - IV Contrast Only; Complete Time: 21:24 kb 12/30 00:06 Order name: Dr Jesus Consult EDMS 12/30 00:07 Order name: Dr Chon Consult EDMS 12/29 19:11 Order name: IV Saline Lock; Complete Time: 19:53 kb 12/29 19:11 Order name: Labs collected and sent; Complete Time: 19:53 kb Administered Medications: 12/29 19:53 Drug: Ondansetron IVP 4 mg IVP once; over 2 minutes Route: IVP; Site: right antecubital;mf3 20:15 Follow up: Response: No adverse reaction; Marked relief of symptoms jb4 19:53 Drug: morphine IVP or IV 4 mg IVP once over 4 mins Route: IVP; Infused Over: 4 mins; mf3 Site: right antecubital; 20:15 Follow up: Response: No adverse reaction; Marked relief of symptoms jb4 19:53 Drug: NS 0.9% IV 1000 ml IV at 1 bolus Per protocol; to be given as a bolus over 60 mf3 minutes Route: IV; Rate: 1 bolus; Site: left antecubital; 12/30 07:07 Follow up: IV Status: Completed infusion jj7 12/29 22:18 Drug: morphine IVP or IV 4 mg IVP once over 4 mins Route: IVP; Infused Over: 4 mins; jb4 Site: right antecubital; 12/30 07:07 Follow up: Response: Marked relief of symptoms jj7 Disposition Summary: 12/29/24 21:49 Hospitalization Ordered Notes: Hospitalization Status: Observation kb Provider: Iggy Olson Condition: Stable kb Problem: new kb Symptoms: are unchanged kb Bed/Room Type: Standard kb Location: Telemetry/MedSurg (observation)(12/30/24 04:55) Room Assignment: [facility](12/30/24 04:55) kl Diagnosis - Ileus, unspecified kb Forms: - Medication Reconciliation Form kb - SBAR form kb - Leadership Thank You Letter kb Signatures: Dispatcher [employer] EDNC Jessie Vines, ASSISTANT GENERAL MANAGER-C ASSISTANT GENERAL MANAGER-Dary Gusman, RN RN Donte Matthew RN RN jb4 Jessica Murillo rv1 LILIAN TRIPP RN RN dd2 Thea Mejia, RN RN mf3 Hiren Cadena RN jj7 Corrections: (The following items were deleted from the chart) 12/29 19:11 19:11 Abdomen Pelvis W Con+CT.RAD.BRZ ordered. [facility] 12/30 03:36 12/29 21:49 Telemetry/MedSurg (observation) [facility] 12/30 03:36 12/29 21:49 kb 1 12/30 04:55 03:36 [facility] ER HOLD rv1 kl 04:55 03:36 ERHOLD- rv1 kl
--- NOTE | 2024-12-29 21:50 | ER ---
Nurse's Notes [facility] Name: Marianna Brannon Age: 34 yrs Sex: Female : 1990 Arrival Date: 12/29/2024 Time: 18:52 Bed 5 Private MD: Diagnosis: Ileus, unspecified Presentation: 12/29 19:07 Chief complaint: Patient states: STOMACH PAIN THAT STARTED 3 DAYS AND RADIATED TO BACK dd2 AT 2 AM, BEGAN HAVING DARK RED BLOODY STOOL ABOUT 1:30 PM. PT REPORTS NAUSEA. DENIES VOMITING, DIARRHEA OR CONSTIPATION. Coronavirus screen: At this time, the client does not indicate any symptoms associated with coronavirus-19. Ebola Screen: No symptoms or risks identified at this time. Initial Sepsis Screen: Does the patient meet any 2 criteria? No. Patient's initial sepsis screen is negative. Does the patient have a suspected source of infection? No. Patient's initial sepsis screen is negative. Risk Assessment: Do you want to hurt yourself or someone else? Patient reports no desire to harm self or others. Onset of symptoms was December 26, 2024. 19:07 Method Of Arrival: Ambulatory dd2 19:07 Acuity: LINDA 3 dd2 Triage Assessment: 19:11 General: Appears in no apparent distress. uncomfortable, Behavior is calm, cooperative, dd2 appropriate for age. Pain: Complains of pain in abdomen. GI: Abd is soft X 4 quads Abdomen is tender to palpation in right upper quadrant and right lower quadrant Reports lower abdominal pain, upper abdominal pain, cramping, bloody stool, nausea. Historical: - Allergies: 19:11 Augmentin; dd2 19:11 Erythromycin; dd2 - PMHx: 19:11 Anxiety; dd2 - PSHx: 19:11 tubal ligation; dd2 - Immunization history:: Adult Immunizations up to date. - Infectious Disease History:: Denies. - Social history:: Smoking status: Reported history of juuling and/or vaping. Screenin:54 [facility] ED Fall Risk Assessment (Adult) History of falling in the last 3 months, mf3 including since admission No falls in past 3 months (0 pts) Confusion or Disorientation No (0 pts) Intoxicated or Sedated No (0 pts) Impaired Gait Yes (1 pt) Mobility Assist Device Used No (0 pt) Altered Elimination No (0 pt) Score/Fall Risk Level 0 - 2 = Low Risk. [facility] ED Fall Risk Assessment (Adult) Score/Fall Risk Level 0 - 2 = Low Risk Oriented to surroundings, Hourly rounding (assess needs \T\ fall precautionary measures) done. Abuse screen: Denies threats or abuse. Denies injuries from another. Nutritional screening: No deficits noted. Tuberculosis screening: No symptoms or risk factors identified. Assessment: 19:54 GI: Bowel sounds present X 4 quads. mf3 19:56 General: Appears in no apparent distress. comfortable, Behavior is calm, cooperative. jb4 Pain: Complains of pain in right lower quadrant Pain radiates to right low back Pain currently is 10 out of 10 on a pain scale. Neuro: Level of Consciousness is awake, alert, obeys commands, Oriented to person, place, time, situation. Cardiovascular: Patient's skin is warm and dry. Respiratory: Airway is patent Respiratory effort is even, unlabored. GI: Abdomen is flat, non-distended, Reports lower abdominal pain. Derm: Skin is intact, Skin is pink, warm \T\ dry. Musculoskeletal: Circulation, motion, and sensation intact. Range of motion: intact in all extremities. 21:41 Reassessment: Patient and/or family updated on plan of care and expected duration. Pain mf3 level reassessed. Patient is alert, oriented x 3, equal unlabored respirations, skin warm/dry/pink. Pt states pain has returned. DIRECTOR OF AUDIOLOGY notified. 22:30 Reassessment: Patient and/or family updated on plan of care and expected duration. Pain mf3 level reassessed. Patient is alert, oriented x 3, equal unlabored respirations, skin warm/dry/pink. 23:30 Reassessment: Patient and/or family updated on plan of care and expected duration. Pain mf3 level reassessed. Patient is alert, oriented x 3, equal unlabored respirations, skin warm/dry/pink. Vital Signs: 19:07 BP 139 / 100; Pulse 102; Resp 16; Temp 97.9; Pulse Ox 100% ; Weight 83.91 kg; Height 5 dd2 ft. 6 in. ; Pain 10/10; 20:30 BP 135 / 99; Pulse 87; Resp 17; Pulse Ox 98% on R/A; mf3 21:30 BP 129 / 72; Pulse 86; Resp 18; Pulse Ox 100% on R/A; mf3 22:00 BP 121 / 80; Pulse 86; Resp 17; Pulse Ox 99% on R/A; mf3 19:07 Body Mass Index 29.86 (83.91 kg, 167.64 cm) dd2 19:07 Pain Scale: Adult dd2 [place] Coma Score: 19:54 Eye Response: spontaneous(4). Motor Response: obeys commands(6). Verbal Response: mf3 oriented(5). Total: 15. ED Course: 18:55 Patient arrived in ED. mr 18:56 Christian Coe DO is Attending Physician. dd2 18:56 [facility]C [facility] dd2 19:10 Triage completed. dd2 19:11 Arm band placed on right wrist. dd2 19:30 Inserted saline lock: 20 gauge in right antecubital area, using aseptic technique. mf3 Blood collected. Flushed with 10 mL NS. 19:38 Radiology exam delayed due to lab results not completed at this time. (BUN/Creatinine) nj IV insertion attempt and/or patient not having appropriate IV at this time. 19:52 Thea Mejia, RN is Primary Nurse. mf3 19:53 CBC with Diff Sent. mf3 19:53 CMP Sent. mf3 19:53 Lipase Sent. mf3 19:54 Patient has correct armband on for positive identification. Bed in low position. Call mf3 light in reach. Side rails up X2. Provided Education on: pt educated on POC. 20:15 CT Abd/Pelvis - IV Contrast Only In Process Unspecified. EDMS 21:49 Iggy Olson MD is Hospitalizing Provider. kb 12/30 06:03 No provider procedures requiring assistance completed. Patient admitted, IV remains in jj7 place. Administered Medications: 12/29 19:53 Drug: Ondansetron IVP 4 mg IVP once; over 2 minutes Route: IVP; Site: right antecubital;mf3 20:15 Follow up: Response: No adverse reaction; Marked relief of symptoms jb4 19:53 Drug: morphine IVP or IV 4 mg IVP once over 4 mins Route: IVP; Infused Over: 4 mins; mf3 Site: right antecubital; 20:15 Follow up: Response: No adverse reaction; Marked relief of symptoms jb4 19:53 Drug: NS 0.9% IV 1000 ml IV at 1 bolus Per protocol; to be given as a bolus over 60 mf3 minutes Route: IV; Rate: 1 bolus; Site: left antecubital; 12/30 07:07 Follow up: IV Status: Completed infusion jj7 12/29 22:18 Drug: morphine IVP or IV 4 mg IVP once over 4 mins Route: IVP; Infused Over: 4 mins; jb4 Site: right antecubital; 12/30 07:07 Follow up: Response: Marked relief of symptoms jj7 Medication: 12/29 19:54 VIS not applicable for this client. mf3 Outcome: 21:49 Decision to Hospitalize by Provider. cheryl 12/30 06:03 Admitted to Med/surg accompanied by nurse, via wheelchair, room 205, Report called to Fabby SBAR TUBED TO 2ND FLOOR Condition: improved 07:07 Patient left the ED. j Signatures: Dispatcher [employer] EDMS Jessie Vines, SOFTWARE CONFIGURATION ENGINEER-C SOFTWARE CONFIGURATION ENGINEER-Ckb Araceli Anderson, Reg Reg Donte Apple, RN RN jb4 Simone Figueroa Juwairiyah, RN RN jj7 LILIAN TRIPP RN RN dd2 Thea Mejia RN RN mf3
--- NOTE | 2024-12-30 00:11 | P.HP ---
Certification for Inpatient Patient admitted to: Inpatient With expected LOS: >2 Midnights Patient will require the following post-hospital care: None Practitioner: I am a practitioner with admitting privileges, knowledge of patient current condition, hospital course, and medical plan of care. Services: Services provided to patient in accordance with Admission requirements found in Title 42 Section 412.3 of the Code of Federal Regulations <Ayan Jenkins - Last Filed: 12/30/24 05:01> Patient History Date of Service: 12/29/24 Reason for admission: Abdominal pain, ileus versus enteritis. History of Present Illness: Patient is a 34-year-old female with past medical history of anxiety currently on Prozac, who presents to the ER today complaining of worsening abdominal pain with associated nausea but no vomiting. Patient states on Friday she started having diffuse abdominal pain, with associated nausea but no vomiting, states her pain is constant, with no known aggravating factors, states initial pain intensity was 9/10. Patient states she tried taking some [id number] medications at home with no pain relief, states the pain progressively worsening today which then prompted her to report to the ER. Patient states today she had 1 episode of small amount of red blood in her stool. States her appetite was go od prior to this incident, and had regular bowel movement. Due to patient presenting incident of passing blood in the stool, requested ER practitioner to consult GI, and according to report received from the provider in ER ED SPECIAL EDUCATION TEACHER, she states she consulted Dr. Lee and agreed for the patient to be admitted and he will follow-up the patient. During admission assessment, patient still endorses diffuse abdominal pain, states the pain is much better after receiving pain medication, denies of any vomiting or nausea at this time.. Course in ER. (1) CT abdomen and pelvis with contrast. Impression: Segmental distal small bowel mild fluid distention with gradual transition towards nondistended small bowel, suggesting of ileus, possibly in the setting of enteritis. Mild free ascites - Past Medical/Surgical History -: Anxiety. -: Normal vaginal delivery - 08/03/2008 -: Normal vaginal delivery - 04/22/2011 -: Tubal ligation 2013. -: Cholecystectomy - Family History Brother -: Cancer (Colon cancer) - Social History Smoking Status: Current every day smoker (Patient states she does not smoke cigarettes but she vapes.) Alcohol use: No CD- Drugs: No Caffeine use: Yes Place of Residence: Home <Ayan Jenkins - Last Filed: 12/30/24 05:01> Date of Service: 12/29/24 <Iggy Olson - Last Filed: 01/03/25 12:37> Allergies erythromycin base [Erythromycin Base] Allergy (Mild, Verified 02/17/14 07:30) Hives amoxicillin [From Augmentin] Allergy (Verified 12/30/24 17:15) Unknown Home Medications: Fluoxetine HCl 20 mg PO DAILY 12/30/24 Review of Systems 10-point ROS is otherwise unremarkable Gastrointestinal: Nausea, Abdominal Pain <Ayan Jenkins - Last Filed: 12/30/24 05:01> Physical Examination - Physical Exam General: Alert, In no apparent distress, Oriented x3, Cooperative HEENT: Atraumatic, Normocephalic, PERRLA, Mucous membr. moist/pink, Sclerae nonicteric Neck: Supple, 2+ carotid pulse no bruit, JVD not distended, No Thyromegaly, No LAD, Without JVD or thyroid abnormality Respiratory: Clear to auscultation bilaterally, Normal air movement Cardiovascular: No edema, Normal pulses, Regular rate/rhythm, Normal S1 S2, No gallops, No rubs, No murmurs Gastrointestinal: Normal bowel sounds, Hypoactive, Soft and benign, Non- distended, W/out hepatomegaly, No ascites, No tenderness, No masses, No rebound, No guarding Musculoskeletal: No clubbing, No swelling, No contractures, No erythema, No tenderness, No warmth Integumentary: No rashes, No breakdown, No significant lesion, No tenderness/swelling, No erythema, No warmth, No cyanosis Neurological: Normal gait, Normal speech, Normal strength at 5/5 x4 extr, Normal tone, Sensation intact, Cranial nerves 3-12 intact, Normal reflexes 2+, Normal affect Lymphatics: No axilla or inguinal lymphadenopathy - Studies Laboratory Data (last 24 hrs) 12/29/24 12/29/24 19:42 19:42 WBC 10.70 Hgb 13.2 Hct 40.3 Plt Count 368 Sodium 138 Potassium 3.9 BUN 11 Creatinine 0.87 Glucose 97 Total Bilirubin 0.3 AST 23 ALT 29 Alkaline Phosphatase 91 Lipase 34 <Ayan Jenkins - Last Filed: 12/30/24 05:01> Female Exam - Breasts Breasts: Normal configuration, Normal contours, Symmetrical <AliceAyan - Last Filed: 12/30/24 05:01> Assessment and Plan - Plan Patient is a 34-year-old female reports to ER complaint of diffuse abdominal pain with associated nausea but no vomiting. Patient has a left shift 79.2. (1)Abdominal pain, ileus versus enteritis. -Zosyn 3.375 g every 8 hours. -IV NS at 100 mL/hr. -Consult GI Dr. Lee. -Consult Dr. Givens surgery. -Morphine 4 mg as needed every 4 hours. -Zofran 4 mg as needed every 6 hours. -Order initial dose of Protonix 40 mg IV stat, followed with Protonix 40 mg IV every 12. (2)DVT prophylaxis. -Lovenox 40 mg subcu daily. (3)Explained the entire treatment plan to the patient, solicited questions answered and voiced understanding. Discharge Plan: Home Plan to discharge in: Greater than 2 days - Advance Directives Does patient have a Living Will: No Does patient have a Durable POA for Healthcare: No - Code Status/Comfort Care Code Status Assessed: Yes Code Status: Full Code Critical Care: No Time Spent Managing Pts Care (In Minutes): 55 <Ayan Jenkins - Last Filed: 12/30/24 05:01> Date of Service: 12/29/24 Patient was seen and examined. Events of the last 24 hours have been noted. Spoke with with JACKIE regarding patient's clinical picture after evaluating and examining the patient independently. I performed a substantial part of the MDM during this patient's care today. I personally made or approved the documented management plan and acknowledge its risk of complications. I agree with the findings and documentation provided in the JACKIE's notes. <Iggy Olson - Last Filed: 01/03/25 12:37>
[2024-12-30] MEDS: NA CHLORIDE 0.9% 1,000 ML IV SCH (01:00)
[2024-12-30] MEDS: PIPER TAZO 3.375 GM in NA CHLORIDE 0.9% 100 ML IV SCH (01:00)
[2024-12-30] MEDS ORDERED: SODIUM CHLORIDE 0.9% 10ML INJ IV PRN (01:39)
[2024-12-30] MEDS: PANTOPRAZOLE 40 MG INJ IVP ONE (01:39)
[2024-12-30] MEDS ORDERED: PANTOPRAZOLE 40 MG INJ ONE (02:30)
[2024-12-30] MEDS ORDERED: NA CHLORIDE 0.9% 1,000 ML ONE (02:30)
[2024-12-30] MEDS ORDERED: NA CHLORIDE 0.9% 100 ML ONE (02:30)
[2024-12-30] MEDS ORDERED: PIPERACIL/TAZO 3.375 GM VIAL IV ONE (02:30)
[2024-12-30] MEDS ORDERED: ACETAMINOPHEN 325 MG TABLET ONE (02:35)
[2024-12-30] MEDS: ACETAMINOPHEN 325 MG TABLET PO PRN (02:50)
[2024-12-30 02:55] VITALS: BMI 29.8
[2024-12-30] MEDS: POTASSIUM CL SA 10 MEQ TAB PO ONE ×2 (07:33→09:52)
[2024-12-30] MEDS: ENOXAPARIN 40 MG/0.4 ML SQ SCH (09:54)
[2024-12-30] MEDS: PANTOPRAZOLE 40 MG INJ IVP SCH (10:00)
[2024-12-30 12:19] LABS: Absolute Lymphocytes (CBC) 1.4 K/uL (0.7-4.9); Hematocrit 39.0 % (36.0-45.0); Hemoglobin 12.7 g/dL (12.0-15.0); MCH 25.9 pg (27.0-35.0); MCHC 32.6 g/dL (32.0-36.0); MCV 79.5 fL (80-100); MPV 7.3 fL (7.6-11.3); Nucleated RBC Absolute Count 0.0 (0-0); Nucleated Red Blood Cells % 0.0 % (0-0); RBC Red Blood Cell Count 4.90 M/uL (3.86-4.86); White Blood Count 5.90 thou/uL (4.3-10.9)
[2024-12-30 12:23] LABS: ALT/SGPT 28.0 U/L (13-56); AST/SGOT 17.0 U/L (15-37); Albumin 3.4 g/dL (3.4-5.0); Albumin/Globulin Ratio 1.0 (1.1-1.8); Alkaline Phosphatase 80.0 U/L (45-117); Anion Gap 8.8 mEq/L (5.0-15.0); BUN Blood Urea Nitrogen 6.0 mg/dL (7-18); Globulin 3.3 g/dL (2.3-3.5); Glucose Level 89.0 mg/dL (74-106); Potassium 3.8 mEq/L (3.5-5.1)
[2024-12-30] MEDS: GOLYTELY 4000 ML PO SCH (13:55)
[2024-12-30] MEDS: ONDANSETRON 4 MG/2 ML VIAL IV PRN (20:01)
[2024-12-30] MEDS: MORPHINE 4 MG/ML SYR IV PRN (20:01)
[2024-12-31 05:20] LABS: Absolute Lymphocytes (CBC) 1.1 K/uL (0.7-4.9); Hematocrit 36.3 % (36.0-45.0); Hemoglobin 12.3 g/dL (12.0-15.0); MCH 26.6 pg (27.0-35.0); MCHC 34.0 g/dL (32.0-36.0); MCV 78.4 fL (80-100); MPV 7.0 fL (7.6-11.3); Nucleated RBC Absolute Count 0.0 (0-0); Nucleated Red Blood Cells % 0.1 % (0-0); RBC Red Blood Cell Count 4.63 M/uL (3.86-4.86); White Blood Count 4.40 thou/uL (4.3-10.9)
[2024-12-31 05:49] LABS: ALT/SGPT 180.0 U/L (13-56); AST/SGOT 195.0 U/L (15-37); Albumin 3.2 g/dL (3.4-5.0); Albumin/Globulin Ratio 1.0 (1.1-1.8); Alkaline Phosphatase 74.0 U/L (45-117); Anion Gap 6.7 mEq/L (5.0-15.0); BUN Blood Urea Nitrogen 7.0 mg/dL (7-18); Globulin 3.2 g/dL (2.3-3.5); Glucose Level 91.0 mg/dL (74-106); Magnesium 2.1 mg/dL (1.6-2.4); Potassium 3.7 mEq/L (3.5-5.1)
[2024-12-31] MEDS: FLUOXETINE 20 MG CAP PO SCH (08:37)
[2024-12-31] MEDS: POTASSIUM CL SA 10 MEQ TAB PO ONE (09:39)
--- NOTE | 2024-12-31 15:36 | P.PN ---
Subjective Date of Service: 12/31/24 Chief Complaint: Abdominal pain, ileus versus enteritis, hematochezia, FH colon cancer - bro Subjective: New changes (Unable to tolerate colon prep with cramping. Wants to try again.) Physical Examination - Vital Signs Temperature: 98.3 F Blood Pressure: 128/82 Pulse: 75 Respirations: 16 Pulse Ox (%): 99 - Studies Laboratory Data (last 24 hrs) 12/31/24 12/31/24 05:06 05:06 WBC 4.40 Hgb 12.3 Hct 36.3 Plt Count 297 Sodium 137 Potassium 3.7 BUN 7 Creatinine 0.77 Glucose 91 Magnesium 2.1 Total Bilirubin 1.0 AST 195 H ALT 180 H Alkaline Phosphatase 74 Assessment And Plan - Current Problems (Diagnosis) (1) RLQ abdominal pain Current Visit: Yes Status: Acute (2) Nausea Current Visit: Yes Status: Acute (3) Hematochezia Current Visit: Yes Status: Acute (4) Abnormal CT of the abdomen Current Visit: Yes Status: Acute (5) Ileitis Current Visit: Yes Status: Acute (6) Family history of colon cancer Current Visit: Yes Status: Acute Comment: brother - Plan REC: 1) colonoscopy over weekend or Friday or outpatient 2) clear liquids and IVFs 3) IBD panel
[2025-01-01 08:08] LABS: Absolute Lymphocytes (CBC) 1.2 K/uL (0.7-4.9); Hematocrit 36.6 % (36.0-45.0); Hemoglobin 12.1 g/dL (12.0-15.0); MCH 26.3 pg (27.0-35.0); MCHC 33.2 g/dL (32.0-36.0); MCV 79.3 fL (80-100); MPV 7.2 fL (7.6-11.3); Nucleated RBC Absolute Count 0.0 (0-0); Nucleated Red Blood Cells % 0.0 % (0-0); RBC Red Blood Cell Count 4.61 M/uL (3.86-4.86); White Blood Count 5.30 thou/uL (4.3-10.9)
[2025-01-01] MEDS: SODIUM CHLORIDE 0.9% 10ML INJ IV PRN (08:14)
[2025-01-01 08:26] LABS: Anion Gap 6.6 mEq/L (5.0-15.0); BUN Blood Urea Nitrogen 5.0 mg/dL (7-18); Glucose Level 91.0 mg/dL (74-106); Potassium 3.6 mEq/L (3.5-5.1)
[2025-01-01 08:27] LABS: ALT/SGPT 109.0 U/L (13-56); AST/SGOT 62.0 U/L (15-37); Albumin 3.4 g/dL (3.4-5.0); Albumin/Globulin Ratio 1.0 (1.1-1.8); Alkaline Phosphatase 57.0 U/L (45-117); Globulin 3.4 g/dL (2.3-3.5); Magnesium 1.8 mg/dL (1.6-2.4)
[2025-01-01] MEDS ORDERED: LIDOCAINE 1% MPF 30 ML VIAL ONE (17:53)
[2025-01-01] MEDS: NA CHLORIDE 0.9% 1,000 ML ONE (18:37)
[2025-01-01] MEDS: ONDANSETRON 4 MG/2 ML VIAL ONE (18:48)
[2025-01-01 19:05] VITALS: BP 112/70; TEMP 98.1; O2SAT 100
--- NOTE | 2025-01-03 05:38 | CON ---
Date of Consultation: 12/30/2024 Reason For Consultation: Hematochezia with abnormal CT scan revealing ileitis, right lower quadrant pain, and family history of colon cancer in brother. History Of Present Illness: The patient is a 34-year-old white female with history of depression, ge neralized anxiety disorder, laparoscopic cholecystectomy in 2021. The patient presented to hospital with abdominal pain, initially in the midepigastric area, radiating down to the right lower quadrant. She says the midepigastric pain was approximately 4 to 5/10 and radiated to the right lower quadran t, became 9/10. The pain now was back down to 4/10 associated with nausea. She denies any melena, h ematemesis, coffee-ground emesis, diarrhea, constipation, change in bowel habits, but she did have he matochezia with her right lower quadrant pain, midepigastric pain, nausea. She also reports family h istory of colon cancer, brother diagnosed at age of 39. CT scan reveals inflammation of the ileum. It does not appear she has any family history of inflammatory bowel disease. Past Medical History: Significant for generalized anxiety disorder, depression, laparoscopic cholecy stectomy in 2021. Home Medications: Include BuSpar, Prozac, Singulair, Ultracef tablet, which is tramadol plus Tylenol like Ultram. Allergies: TO KETORALAC, ERYTHROMYCIN, AMOXICILLIN, AUGMENTIN. Social History: She is , 3 sons. She quit tobacco some time ago, but she continues to vape. No alcohol. Family History: Father alive and well. Mother alive with depression. Paternal aunt with breast can cer. Physical Examination: Vital Signs: The patient is 5 foot 6 inches, 185 pounds, BMI 29.9 kg/sq m. She has temperature of 9 7.8 degrees Fahrenheit, pulse 86, respirations 18, blood pressure 132/89, O2 saturation 99% on room a ir. General: She is an obese female, lying in bed, in no acute distress. Very happy, jovial. HEENT: Normocephalic, atraumatic. Anicteric. Pupils equal, round, and reactive to light. Extraocu lar movements are intact. Oropharynx clear. Neck: Supple. No masses. Respirations: Clear with good air movement. Abdominal Exam: Soft, nontender, nondistended. No hepatosplenomegaly except some mild right lower q uadrant pain. No peritoneal Lopez sign. Extremities: No clubbing, cyanosis. 2+ pulses. Neuro: Alert and oriented x3. Grossly nonfocal. 5/5 motor strength. Sensation intact to light dorothea ch. Laboratory Studies: White count 5.9, down from 10.7 yesterday, hemoglobin of 12.7, hematocrit 39, MC V of 79.5, platelet count of 350, polys 66% down from 79% yesterday, lymphocytes 23%, monocytes 6%, b asophils 3%. Sodium 139, potassium 3.8, chloride 106, bicarb 28, BUN of 6, creatinine of 0.85, gluco se 89, calcium 8.3, total bilirubin 0.7, AST of 17, ALT of 28, alkaline phosphatase 80, total protein 6.7, albumin 3.4, lipase 34. CT abdomen and pelvis revealed segmental small bowel mild fluid distention with gradual transition to wards nondistended small bowel suggesting ileus, possibly in the setting of enteritis or possible ile itis. There is mild free ascites noted as well. Impression: 1. Possible ileitis with right lower quadrant pain, maximum 9/10, down to 4/10, associated with nause a with abnormal CT scan revealing possible ileitis. 2. Midepigastric pain which seems to be resolved, mild, 4/10, now down to none. Pain is mainly in th e right lower quadrant she reports. 3. Hematochezia. 4. Family history of colon cancer in brother diagnosed at age of 39. 5. History of depression, generalized anxiety disorder. Laparoscopic cholecystectomy in 2021 was per formed by Dr. Samm Givens as it appears. Recommendation: 1. Continue IV fluids, IV antibiotics. 2. Continue p.r.n. pain medicines and antiemetics. 3. We will proceed with colonoscopy. 4. Check IBD panel. SUZETTE/NATALIO Voice ID: [id number] Report ID: [id number]
[2025-01-04 21:11] LABS: C-ANCA Anti-Proteinase 3 <1.0 AI (<1.0); P-ANCA Anti-Myeloperoxidase Ab <1.0 AI (<1.0)
== END 2025-01-01 21:15 | disposition home or self-care (01) | DRG 389 ==
LOC: ER 18:52 → INTOOBSV 12-30 → ERHOLD 12-30 → 2ND 12-30 05:54 → OBSVTOIN 12-31 10:56
PROVIDERS: ADMIT Hospitalist; ATTEND Hospitalist
PROC: 0DBB8ZX Excision of Ileum, Via Natural or Artificial Opening Endoscopic, Diagnostic (ICD-10-PCS; principal; 2024-12-31)
PROC: 0DBE8ZX Excision of Large Intestine, Via Natural or Artificial Opening Endoscopic, Diagnostic (ICD-10-PCS; 2024-12-31)
PROC: 0DBP8ZX Excision of Rectum, Via Natural or Artificial Opening Endoscopic, Diagnostic (ICD-10-PCS; 2024-12-31)
DX: K56.7 Ileus, unspecified (principal); K92.1 Melena; R18.8 Other ascites; K52.9 Noninfective gastroenteritis and colitis, unspecified; K64.8 Other hemorrhoids; F41.1 Generalized anxiety disorder; F17.290 Nicotine dependence, other tobacco product, uncomplicated; Z88.1 Allergy status to other antibiotic agents; Z90.49 Acquired absence of other specified parts of digestive tract
CPT/HCPCS: 36415; 74177; 80053; 82565; 83690; 83735; 85025; 86021; 86671; 88305; 96361; 96374; 96375; 99285; A4216; G0378; J1650; J2003; J2405; J2470; J2543; J2704; J7030; Q9967